=== PATIENT | female | born 1990 | race Caucasian/White ===

== ENCOUNTER 2017-03-15 20:11 | Emergency (ER) | payer SELFPAY, OTHER | END 2017-03-16 01:26 | disposition left against medical advice (07) | LOC: FTE 20:11 | DX: Z53.21 Procedure and treatment not carried out due to patient leaving prior to being seen by health care provider (principal) ==

== ENCOUNTER 2017-06-03 07:37 | Emergency (ER) | payer OTHER ==
[2017-06-03] MEDS: IBUPROFEN 800 MG TAB PO (08:44)
[2017-06-03 08:54] LABS: ADD MAN DIFF? NO
[2017-06-03 08:55] LABS: BASOPHILS % 0.4 % (0.0-2.0); EOSINOPHILS # 0.2 10^3/ul (0.0-0.5); EOSINOPHILS % 2.4 % (0.0-7.0); HEMOGLOBIN 11.3 g/dl (12.0-16.0); LYMPHOCYTES # 2.3 10^3/ul (0.8-2.9); LYMPHOCYTES % 29.4 % (15.0-51.0); MEAN CORPUSCULAR HEMOGLOBIN 25.8 pg (29.0-33.0); MEAN CORPUSCULAR HGB CONC 31.4 g/dl (32.0-37.0); MEAN CORPUSCULAR VOLUME 82.2 fl (82.0-101.0); MEAN PLATELET VOLUME 10.2 fl (7.4-10.4); MONOCYTE # 0.6 10^3/ul (0.3-0.9); MONOCYTES % 7.2 % (0.0-11.0); NEUTROPHIL # 4.7 10^3/ul (1.6-7.5); NEUTROPHILS % 60.2 % (39.0-77.0); PLATELET COUNT 357 10^3/UL (140-415); RED BLOOD COUNT 4.38 10^6/ul (4.20-5.40); RED CELL DISTRIBUTION WIDTH 14.6 % (11.5-14.5)
[2017-06-03 08:55] LABS: WHITE BLOOD COUNT 7.9 10^3/ul (4.8-10.8)
== END 2017-06-03 09:53 | disposition home or self-care (01) ==
LOC: FTE 07:37
DX: N94.6 Dysmenorrhea, unspecified (principal)
CPT/HCPCS: 76830; 76856; 81025; 85025; 99284-25

== ENCOUNTER 2017-12-24 16:18 | Emergency (ER) | payer OTHER ==
[2017-12-24] MEDS: ACETAMINOPHEN 325 MG TAB PO (17:11)
== END 2017-12-24 17:55 | disposition home or self-care (01) ==
LOC: FTE 16:18
DX: S62.624A Displaced fracture of middle phalanx of right ring finger, initial encounter for closed fracture (principal); W19.XXXA Unspecified fall, initial encounter; Y92.9 Unspecified place or not applicable
CPT/HCPCS: 29130; 73130-RT; 99283-25

== ENCOUNTER 2018-01-08 17:11 | Emergency (ER) | payer OTHER ==
[2018-01-08 18:11] LABS: ADD MAN DIFF? NO
[2018-01-08 18:15] LABS: WHITE BLOOD COUNT 8.8 10^3/ul (4.8-10.8)
[2018-01-08 18:15] LABS: BASOPHIL # 0.1 10^3/ul (0.0-0.1); BASOPHILS % 0.6 % (0.0-2.0); EOSINOPHILS # 0.2 10^3/ul (0.0-0.5); EOSINOPHILS % 2.2 % (0.0-7.0); HEMATOCRIT 31.7 % (37.0-47.0); LYMPHOCYTES # 3.4 10^3/ul (0.8-2.9); LYMPHOCYTES % 38.1 % (15.0-51.0); MEAN CORPUSCULAR HEMOGLOBIN 23.5 pg (29.0-33.0); MEAN CORPUSCULAR HGB CONC 31.5 g/dl (32.0-37.0); MEAN CORPUSCULAR VOLUME 74.6 fl (82.0-101.0); MEAN PLATELET VOLUME 10.5 fl (7.4-10.4); MONOCYTE # 0.7 10^3/ul (0.3-0.9); MONOCYTES % 8.3 % (0.0-11.0); NEUTROPHIL # 4.5 10^3/ul (1.6-7.5); NEUTROPHILS % 50.5 % (39.0-77.0); PLATELET COUNT 383 10^3/UL (140-415); RED BLOOD COUNT 4.25 10^6/ul (4.20-5.40)
[2018-01-08] MEDS: HYDROCODONE/APAP (5/325) TAB PO (18:18)
[2018-01-08] MEDS: FAMOTIDINE 20 MG TAB PO (18:19)
[2018-01-08] MEDS: ONDANSETRON (ODT) 4 MG TAB ODT (18:19)
[2018-01-08 18:28] LABS: ADD UMIC YES; UR ASCORBIC ACID NEGATIVE (NEGATIVE); UR BACTERIA FEW /HPF (NONE SEEN); UR BILIRUBIN (Dip) NEGATIVE (NEGATIVE); UR BLOOD (Dip) 2+ mg/dL (NEGATIVE); UR CLARITY CLEAR (CLEAR); UR COLOR STRAW (YELLOW); UR GLUCOSE (Dip) NEGATIVE (NEGATIVE); UR KETONES (Dip) NEGATIVE (NEGATIVE); UR LEUKOCYTE ESTERASE (Dip) NEGATIVE Leu/ul (NEGATIVE); UR NITRITE (Dip) NEGATIVE (NEGATIVE); UR RBC 1 /HPF (0-5); UR SPECIFIC GRAVITY (Dip) 1.003 (1.003-1.030); UR SQUAMOUS EPITHELIAL CELL FEW /HPF (FEW); UR TOTAL PROTEIN (Dip) NEGATIVE (NEGATIVE); UR UROBILINOGEN (Dip) NEGATIVE (NEGATIVE); UR WBC 1 /HPF (0-5)
[2018-01-08 18:33] LABS: ALANINE AMINOTRANSFERASE 54 IU/L (13-69); ALBUMIN 4.7 g/dl (3.3-4.9); ALBUMIN/GLOBULIN RATIO 1.38; ALKALINE PHOSPHATASE 95 IU/L (42-121); ANION GAP 14 (5-13); ASPARTATE AMINO TRANSFERASE 42 IU/L (15-46); BILIRUBIN,INDIRECT 0.2 mg/dl (0-1.1); BILIRUBIN,TOTAL 0.2 mg/dl (0.2-1.3); BLOOD UREA NITROGEN 13 mg/dl (7-20); CALCIUM 9.3 mg/dl (8.4-10.2); CARBON DIOXIDE 26 mmol/L (21-31); CHLORIDE 104 mmol/L (97-110); CREATININE 0.45 mg/dl (0.44-1.00); Estimated GFR > 60 mL/min (>60); GLUCOSE 90 mg/dl (70-220); LIPASE 166 U/L (23-300); POTASSIUM 4.3 mmol/L (3.5-5.1); SODIUM 144 mmol/L (135-144); TOTAL PROTEIN 8.1 g/dl (6.1-8.1)
== END 2018-01-08 20:01 | disposition home or self-care (01) ==
LOC: FTE 17:11
DX: R10.13 Epigastric pain (principal)
CPT/HCPCS: 76705; 80053; 81001; 83690; 84703; 85025; 99284-25

== ENCOUNTER 2018-04-23 05:46 | Inpatient (IN) | payer OTHER ==
[2018-04-23] MEDS: HYDROCODONE/APAP (5/325) TAB PO (07:19)
[2018-04-23] MEDS: ONDANSETRON (ODT) 4 MG TAB ODT (07:19)
[2018-04-23 07:22] LABS: ADD MAN DIFF? NO
[2018-04-23 07:26] LABS: BASOPHILS % 0.3 % (0.0-2.0); EOSINOPHILS # 0.1 10^3/ul (0.0-0.5); EOSINOPHILS % 0.8 % (0.0-7.0); HEMATOCRIT 34.4 % (37.0-47.0); HEMOGLOBIN 10.4 g/dl (12.0-16.0); LYMPHOCYTES # 1.5 10^3/ul (0.8-2.9); LYMPHOCYTES % 12.8 % (15.0-51.0); MEAN CORPUSCULAR HEMOGLOBIN 23.3 pg (29.0-33.0); MEAN CORPUSCULAR HGB CONC 30.2 g/dl (32.0-37.0); MEAN CORPUSCULAR VOLUME 77.1 fl (82.0-101.0); MEAN PLATELET VOLUME 9.9 fl (7.4-10.4); MONOCYTE # 0.9 10^3/ul (0.3-0.9); MONOCYTES % 7.9 % (0.0-11.0); NEUTROPHIL # 9.1 10^3/ul (1.6-7.5); NEUTROPHILS % 77.6 % (39.0-77.0); PLATELET COUNT 297 10^3/UL (140-415); RED BLOOD COUNT 4.46 10^6/ul (4.20-5.40); RED CELL DISTRIBUTION WIDTH 19.2 % (11.5-14.5)
[2018-04-23 07:26] LABS: WHITE BLOOD COUNT 11.7 10^3/ul (4.8-10.8)
[2018-04-23 07:29] LABS: ADD UMIC NO; UR ASCORBIC ACID NEGATIVE (NEGATIVE); UR BILIRUBIN (Dip) NEGATIVE (NEGATIVE); UR BLOOD (Dip) NEGATIVE (NEGATIVE); UR CLARITY CLEAR (CLEAR); UR COLOR YELLOW (YELLOW); UR GLUCOSE (Dip) NEGATIVE (NEGATIVE); UR KETONES (Dip) NEGATIVE (NEGATIVE); UR LEUKOCYTE ESTERASE (Dip) NEGATIVE Leu/ul (NEGATIVE); UR NITRITE (Dip) NEGATIVE (NEGATIVE); UR SPECIFIC GRAVITY (Dip) 1.019 (1.003-1.030); UR TOTAL PROTEIN (Dip) NEGATIVE (NEGATIVE); UR UROBILINOGEN (Dip) NEGATIVE (NEGATIVE)
[2018-04-23 07:42] LABS: ALANINE AMINOTRANSFERASE 70 IU/L (13-69); ALBUMIN 4.7 g/dl (3.3-4.9); ALBUMIN/GLOBULIN RATIO 1.42; ALKALINE PHOSPHATASE 93 IU/L (42-121); ANION GAP 9 (5-13); ASPARTATE AMINO TRANSFERASE 41 IU/L (15-46); BILIRUBIN,INDIRECT 0.2 mg/dl (0-1.1); BILIRUBIN,TOTAL 0.2 mg/dl (0.2-1.3); BLOOD UREA NITROGEN 11 mg/dl (7-20); CALCIUM 9.6 mg/dl (8.4-10.2); CARBON DIOXIDE 29 mmol/L (21-31); CHLORIDE 104 mmol/L (97-110); CREATININE 0.49 mg/dl (0.44-1.00); Estimated GFR > 60 mL/min (>60); GLUCOSE 101 mg/dl (70-220); LIPASE 62 U/L (23-300); POTASSIUM 4.5 mmol/L (3.5-5.1); SODIUM 142 mmol/L (135-144)
[2018-04-23] MEDS: PIPER-TAZO 3.375 GM IV (PMX) 100 ML IVPB ×3 (09:01→22:00)
[2018-04-23] MEDS: SOD CHLORIDE 0.9% 1,000 ML IV ×3 (09:01→22:41)
[2018-04-23] MEDS ORDERED: ACETAMINOPHEN 325 MG TAB PO (10:00)
[2018-04-23] MEDS ORDERED: ONDANSETRON 4 MG INJ IV ×3 (10:00→21:30)
[2018-04-23] MEDS: morphine 2 MG INJ IV ×2 (12:55→16:44)
[2018-04-23] MEDS ORDERED: DOCUSATE SODIUM 100 MG CAP PO (13:00)
[2018-04-23] MEDS ORDERED: NACL 0.9% 3 ML SYG IV (13:00)
[2018-04-23] MEDS ORDERED: METOCLOPRAMIDE 10 MG INJ IV ×2 (13:00→21:30)
[2018-04-23 13:26] LABS: INR 0.99; PROTIME 13.2 Sec (11.9-14.9)
[2018-04-23] MEDS ORDERED: HYDROmorphONE 1 MG/ML SYG IV (17:00)
[2018-04-23] MEDS ORDERED: DIPHENHYDRAMINE 50 MG INJ IV (21:30)
[2018-04-23] MEDS ORDERED: HYDROmorphONE 1 MG/5 ML IV SYRINGE IV ×2 (21:30)
[2018-04-23] MEDS ORDERED: FENTAnyl 50 MCG/ML VIAL IV ×3 (21:30)
[2018-04-23] MEDS ORDERED: MEPERIDINE 25 MG INJ IV (21:30)
[2018-04-23] MEDS ORDERED: OXYCODONE/ACETAMINOPHEN (5/325) TAB PO (21:30)
[2018-04-23] MEDS ORDERED: EPHEDrine SULFATE 50 MG/5 ML SYG IV (21:30)
[2018-04-23] MEDS ORDERED: LABETALOL HCL 20MG INJ IV (21:30)
[2018-04-23] MEDS ORDERED: MIDAZOLAM 1 MG/ML 2 ML INJ (21:31)
[2018-04-23] MEDS ORDERED: ROPIVACAINE 0.2% 20 ML VIAL (21:31)
[2018-04-23] MEDS ORDERED: PROPOFOL 20 ML (21:31)
[2018-04-23] MEDS ORDERED: FENTAnyl 50 MCG/ML VIAL (21:31)
[2018-04-23] MEDS ORDERED: ROCURONIUM 50 MG INJ (21:31)
[2018-04-23] MEDS ORDERED: CEFAZOLIN 1 GM INJ (23:13)
[2018-04-23] MEDS ORDERED: ONDANSETRON 4 MG INJ (23:38)
[2018-04-23] MEDS ORDERED: DEXAMETHASONE 4 MG/ML 5 ML INJ (23:38)
[2018-04-23] MEDS ORDERED: METOCLOPRAMIDE 10 MG INJ (23:38)
[2018-04-23] MEDS ORDERED: SUGAMMADEX SODIUM 200 MG/2 ML VIAL IV (23:40)
[2018-04-23] MEDS ORDERED: KETOROLAC 30 MG INJ (23:40)
[2018-04-23] MEDS ORDERED: PHENYLephrine (100 MCG/ML) 5ML SYG (23:43)
[2018-04-24] MEDS ORDERED: ONDANSETRON 4 MG INJ IV
[2018-04-24] MEDS ORDERED: HYDROmorphONE 0.5 MG/0.5 ML SYG IV
[2018-04-24] MEDS: HYDROmorphONE 1 MG/5 ML IV SYRINGE IV (00:23)
[2018-04-24] MEDS: D5W-0.45 NACL + KCL 20 MEQ 1,000 ML IV ×2 (01:18→09:57)
[2018-04-24] MEDS: PANTOPRAZOLE 40 MG INJ IV (06:00)
[2018-04-24] MEDS: PIPER-TAZO 3.375 GM IV (PMX) 100 ML IVPB ×3 (06:00→21:53)
[2018-04-24] MEDS: SOD CHLORIDE 0.9% 1,000 ML IV ×2 (08:38→12:47)
[2018-04-24] MEDS: FAMOTIDINE 20 MG INJ IV (08:41)
[2018-04-24] MEDS: ACETAMINOPHEN 325 MG TAB PO ×2 (14:05→20:01)
[2018-04-24] MEDS: FAMOTIDINE 20 MG TAB PO (21:53)
[2018-04-25] MEDS: PIPER-TAZO 3.375 GM IV (PMX) 100 ML IVPB ×2 (06:22→15:57)
[2018-04-25 06:51] LABS: ADD MAN DIFF? NO
[2018-04-25 06:57] LABS: WHITE BLOOD COUNT 10.5 10^3/ul (4.8-10.8)
[2018-04-25 06:58] LABS: BASOPHILS % 0.3 % (0.0-2.0); EOSINOPHILS % 0.2 % (0.0-7.0); HEMATOCRIT 29.7 % (37.0-47.0); HEMOGLOBIN 9.1 g/dl (12.0-16.0); LYMPHOCYTES # 3.1 10^3/ul (0.8-2.9); LYMPHOCYTES % 29.6 % (15.0-51.0); MEAN CORPUSCULAR HEMOGLOBIN 23.5 pg (29.0-33.0); MEAN CORPUSCULAR HGB CONC 30.6 g/dl (32.0-37.0); MEAN CORPUSCULAR VOLUME 76.7 fl (82.0-101.0); MEAN PLATELET VOLUME 10.7 fl (7.4-10.4); MONOCYTE # 0.8 10^3/ul (0.3-0.9); MONOCYTES % 7.2 % (0.0-11.0); NEUTROPHIL # 6.5 10^3/ul (1.6-7.5); NEUTROPHILS % 62.1 % (39.0-77.0); PLATELET COUNT 283 10^3/UL (140-415); RED BLOOD COUNT 3.87 10^6/ul (4.20-5.40)
[2018-04-25] MEDS: SOD CHLORIDE 0.9% 1,000 ML IV (07:30)
[2018-04-25 07:44] LABS: ANION GAP 8 (5-13); BLOOD UREA NITROGEN 10 mg/dl (7-20); CALCIUM 8.8 mg/dl (8.4-10.2); CARBON DIOXIDE 23 mmol/L (21-31); CHLORIDE 111 mmol/L (97-110); CREATININE 0.54 mg/dl (0.44-1.00); Estimated GFR > 60 mL/min (>60); GLUCOSE 90 mg/dl (70-220); POTASSIUM 3.8 mmol/L (3.5-5.1); SODIUM 142 mmol/L (135-144)
[2018-04-25] MEDS: FAMOTIDINE 20 MG TAB PO (09:54)
== END 2018-04-25 18:15 | disposition home or self-care (01) | DRG 342 ==
LOC: FTE 05:46 → 5EC 09:42
PROC: 0DTJ4ZZ Resection of Appendix, Percutaneous Endoscopic Approach (ICD-10-PCS; principal; 2018-04-23 22:00)
DX: K35.80 Unspecified acute appendicitis (principal); R65.10 Systemic inflammatory response syndrome (SIRS) of non-infectious origin without acute organ dysfunction; N83.202 Unspecified ovarian cyst, left side; N83.201 Unspecified ovarian cyst, right side; K76.0 Fatty (change of) liver, not elsewhere classified; N80.9 Endometriosis, unspecified; E66.9 Obesity, unspecified; Z68.31 Body mass index [BMI] 31.0-31.9, adult; D64.9 Anemia, unspecified
CPT/HCPCS: 36415; 71045; 74176; 76705; 76856; 80048; 80053; 81003; 81025; 83690; 85025; 85610; 88304; 93005; 96365; 99285-25